=== PATIENT | male | born 1990 | race Hispanic/Latino ===

== ENCOUNTER 2019-01-12 07:26 | Emergency (ER) | payer BC, OTHER ==
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
[2019-01-12] MEDS ORDERED: CYCLOBENZAPRINE 10 MG TAB ONE (08:03)
[2019-01-12] MEDS ORDERED: IBUPROFEN 400 MG TAB ONE (08:03)
[2019-01-12] MEDS ORDERED: IBUPROFEN 200 MG TAB PO ONE (08:03)
== END 2019-01-12 07:59 | disposition home or self-care (01) ==
LOC: ER 07:26
DX: M62.830 Muscle spasm of back (principal); V49.40XA Driver injured in collision with unspecified motor vehicles in traffic accident, initial encounter
CPT/HCPCS: 99284

== ENCOUNTER 2020-03-21 16:47 | Emergency (ER) | payer BC ==
--- NOTE | 2020-03-21 17:39 | RAD REPORT ---
EXAM DESCRIPTION: CT - Facial Bones W/ Mpr - 03/21/2020 5:21 pm CLINICAL HISTORY: Nose and lips pain, facial trauma COMPARISON: None. TECHNIQUE: Axial 2 millimeter thick images of the facial bones were obtained with sagittal and coron al reconstruction imaging. All CT scans are performed using dose optimization technique as appropriate and may include automated exposure control or mA/KV adjustment according to patient size. FINDINGS: Comminuted nasal bone fracture is present. There is a very slight left lateral angulation of the nasal bones. No significant displacement. Nasal septum remains midline without a fracture conf irmed. No displacement or angulation of the nasal septum. Overlying soft tissue contusion and edema changes are present in the nose and upper lip region. No other fracture changes. No acute sinus or orbit finding. No foreign body. IMPRESSION: Comminuted nasal bone fracture with slight left angulation of the nasal bones. No nasal septum fracture seen. No other bony abnormality. No globe or acute sinus finding.
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
--- NOTE | 2020-03-21 17:58 | ER ---
Nurse's Notes [facility] Name: Priyank Choudhary Age: 30 yrs Sex: Male : 1990 Arrival Date: 03/21/2020 Time: 16:49 Bed 6 Private MD: Diagnosis: Fracture of nasal bones Presentation: 03/21 16:56 Chief complaint: Patient states: Nose and upper lip pain since getting hit 20 min [employer] ll1 while playing baseball with son. Bleeding controlled. Denies LOC. Coronavirus screen: Proceed with normal triage. Patient denies a cough. Patient denies shortness of breath or difficulty breathing. Patient denies measured and/or subjective temperature greater than 100.4F prior to today's visit. Patient denies travel on a cruise ship or to a country the [facility] currently lists as an affected area. Patient denies contact with known and/or suspected case of COVID-19. Ebola Screen: Patient denies travel to an Ebola-affected area in the 21 days before illness onset. Initial Sepsis Screen: Does the patient meet any 2 criteria? No. Patient's initial sepsis screen is negative. Does the patient have a suspected source of infection? No. Patient's initial sepsis screen is negative. Risk Assessment: Do you want to hurt yourself or someone else? Patient reports no desire to harm self or others. Onset of symptoms was March 21, 2020. 16:56 [facility] Acuity: REAL 4 ll1 Historical: - Allergies: 16:57 No Known Allergies; ll1 - PSHx: 16:57 None; ll1 - Social history:: Smoking status: Patient denies any tobacco usage or history of. Patient uses alcohol, occasionally. only on a social basis. Patient/guardian denies using street drugs. - Family history:: not pertinent. - Hospitalizations: : No recent hospitalization is reported. Screenin:01 Abuse screen: Denies threats or abuse. Nutritional screening: No deficits noted. em Tuberculosis screening: No symptoms or risk factors identified. Fall Risk None identified. Assessment: 17:00 General: Appears in no apparent distress. uncomfortable, slender, Behavior is calm, em cooperative, appropriate for age. Pain: Complains of pain in nose Pain currently is 9 out of 10 on a pain scale. Neuro: Level of Consciousness is awake, alert, obeys commands, Oriented to person, place, time, situation, Appropriate for age Reports headache Denies weakness dizziness. Cardiovascular: Capillary refill < 3 seconds. Respiratory: Airway is patent Respiratory effort is even, unlabored, Respiratory pattern is regular, symmetrical. GI: Abdomen is flat. EENT: Nares with bleeding noted Oral mucosa is moist. Derm: Skin is intact, is healthy with good turgor, Skin is pink, warm \T\ dry. Musculoskeletal: Capillary refill < 3 seconds, Range of motion: intact in all extremities. 18:07 Reassessment: Patient appears in no apparent distress at this time. Patient and/or em family updated on plan of care and expected duration. Pain level reassessed. Patient is alert, oriented x 3, equal unlabored respirations, skin warm/dry/pink. Vital Signs: 16:56 BP 116 / 74; Pulse 60; Resp 18; Temp 98.5; Pulse Ox 100% ; Pain 9/10; ll1 [place] Coma Score: 16:59 Eye Response: spontaneous(4). Verbal Response: oriented(5). Motor Response: obeys rn commands(6). Total: 15. 17:54 Eye Response: spontaneous(4). Verbal Response: oriented(5). Motor Response: obeys rn commands(6). Total: 15. ED Course: 16:49 Patient arrived in ED. mr 16:55 Tobias Toussaint MD is Attending Physician. rn 16:55 Michele Boateng, CASI is Primary Nurse. em 16:57 Triage completed. ll1 16:57 Arm band placed on Patient placed in an exam room, on a stretcher. ll1 17:01 Patient has correct armband on for positive identification. Bed in low position. Call em light in reach. 17:21 CT Facial Bones W/O Con In Process Unspecified. EDMS 17:57 Karoline Aranda MD is Referral Physician. rn 18:07 No provider procedures requiring assistance completed. Patient did not have IV access em during this emergency room visit. Administered Medications: No medications were administered Outcome: 17:57 Discharge ordered by . rn 18:07 Discharged to home ambulatory. em 18:07 Condition: good 18:07 Discharge instructions given to patient, Instructed on discharge instructions, follow up and referral plans. no drinking with medication, no driving heavy equipment, medication usage, safe sex practices, wound care, Demonstrated understanding of instructions, follow-up care, medications, Prescriptions given X 2. 18:13 Patient left the ED. em Signatures: Dispatcher [employer] Inez Mason Edgar, RN RN Tobias Gudino MD MD rn Lewis, Lynsay, RN RN ll1
[2020-03-21 19:45] VITALS: BP 116/74; TEMP 98.5; O2SAT 100
== END 2020-03-21 18:13 | disposition home or self-care (01) ==
LOC: ER 16:47
DX: S02.2XXA Fracture of nasal bones, initial encounter for closed fracture (principal); W21.03XA Struck by baseball, initial encounter; Y93.9 Activity, unspecified; Y92.9 Unspecified place or not applicable
CPT/HCPCS: 70486; 76377; 99283